=== PATIENT | male | born 1970 | race Caucasian/White ===

== ENCOUNTER 2017-07-26 19:02 | Emergency (ER) | payer OTHER ==
[~2017-07-26] VITALS: Ht 172.7 cm; Wt 81.0 kg
[2017-07-26 19:05] VITALS: Ht 172.7 cm; Wt 81.0 kg
[2017-07-26 22:39] VITALS: BP 132/68
== END 2017-07-26 22:39 | disposition home or self-care (01) ==
LOC: ED 19:02
DX: S41.152A Open bite of left upper arm, initial encounter (principal); R03.0 Elevated blood-pressure reading, without diagnosis of hypertension; Z88.0 Allergy status to penicillin; W54.0XXA Bitten by dog, initial encounter; Y93.89 Activity, other specified; Y92.89 Other specified places as the place of occurrence of the external cause; Y99.8 Other external cause status
CPT/HCPCS: 90715; J0690